=== PATIENT | female | born 1950 | race Caucasian/White ===

== ENCOUNTER 2025-02-17 06:56 | Inpatient (IN) ==
[2025-02-10 14:44] LABS: Basophils # (Auto) 0.02 K/mcL (0.00-0.30); Basophils % (Auto) 0.4 % (0.0-2.0); Eosinophils # (Auto) 0.06 K/mcL (0.00-0.70); Eosinophils % (Auto) 1.3 % (0.0-7.0); Hematocrit 35.4 % (34.1-44.9); Hemoglobin 11.3 g/dL (11.2-15.7); Lymphocytes # (Auto) 1.37 K/mcL (1.50-4.80); Lymphocytes % (Auto) 28.9 % (15.5-49.0); Mean Corpuscular HGB Conc 31.9 g/dL (31.0-36.0); Monocytes # (Auto) 0.41 K/mcL (0.10-0.90); Monocytes % (Auto) 8.6 % (1.0-12.0); Neutrophils % (Auto) 60.8 % (38.0-78.0); Platelet Count 203 K/mcL (140-440); RBC 3.55 M/mcL (3.59-5.38); WBC 4.7 K/mcL (4.5-11.0)
[2025-02-10 14:52] LABS: INR 1.0 (0.9-1.1); Prothrombin Time 14.1 sec (11.9-14.5)
[2025-02-10 14:54] LABS: Bilirubin,Urine Negative (Negative); Color,Urine Yellow; Glucose,Urine (UA) Negative (Negative); Ketones,Urine Negative (Negative); Leukocyte Esterase,Urine Negative /uL (Negative); PH,Urine 5.5 (5.0-9.0); Protein,Urine Negative (Negative); Specific Gravity,Urine <= 1.005 (1.000-1.035); Urobilinogen,Urine Normal
[2025-02-10 15:02] LABS: ALT/SGPT 13 U/L (<40); AST/SGOT 20 U/L (<32); Albumin 4.3 gm/dL (3.2-5.2); Albumin/Globulin Ratio 1.5 (1.0-2.3); Alkaline Phosphatase 61 U/L (39-117); Anion Gap 11.0 (8.0-16.0); Bilirubin,Total 0.2 mg/dL (0.1-1.0); Blood Urea Nitrogen 18 mg/dL (8-23); Calcium 9.9 mg/dL (8.6-10.4); Carbon Dioxide 23 mmol/L (22-30); Chloride 103 mmol/L (96-108); Globulin 2.8 gm/dL (2.2-3.7); Glucose 100 mg/dL (70-105); Potassium 4.2 mmol/L (3.3-5.1); Sodium 137 mmol/L (133-145)
[2025-02-10 19:00] LABS: Estimated Average Glucose(eAG) 114 mg/dL; Hemoglobin A1C 5.6 % Hgb (4.0-6.0)
[2025-02-17] MEDS ORDERED: GLYCOPYRROLATE 0.2 MG/ML VIAL IV ONE (07:14)
[2025-02-17] MEDS ORDERED: TRANEXAMIC ACID 1,000 MG/10 ML VIAL ONE (07:14)
[2025-02-17] MEDS ORDERED: DEXAMETHASONE 10 MG/ML VIAL ONE (07:14)
[2025-02-17] MEDS ORDERED: FAMOTIDINE/PF 20 MG/2 ML VIAL IV ONE (07:14)
[2025-02-17] MEDS ORDERED: ONDANSETRON 4 MG/2 ML VIAL ONE (07:14)
[2025-02-17] MEDS ORDERED: ROPIVACAINE HCL/PF 30 ML VIAL IJ ONE (07:15)
[2025-02-17] MEDS ORDERED: LIDOCAINE 2% PF 5 ML VIAL ONE (07:16)
[2025-02-17] MEDS ORDERED: PROPOFOL 200 MG/20 ML VIAL IV ONE (07:17)
[2025-02-17] MEDS ORDERED: MAGNESIUM SULFATE 2 GM/50 ML BAG IV ONE (07:19)
[2025-02-17] MEDS: CELECOXIB 200 MG CAPSULE PO SCH (07:30)
[2025-02-17] MEDS: oxyCODONE 10 MG TAB.ER.12H PO SCH (07:30)
[2025-02-17] MEDS: ACETAMINOPHEN 500 MG TABLET PO SCH (07:30)
[2025-02-17] MEDS: PREGABALIN 75 MG CAPSULE PO SCH (07:31)
[2025-02-17] MEDS: SCOPOLAMINE 1 PATCH PATCH TOPICAL ONE (08:10)
[2025-02-17] MEDS: ceFAZolin 2 GM in DEXTROSE 5% IN WATER 50 ML IV SCH (08:12)
[2025-02-17] MEDS ORDERED: PHENYLephrine 1 MG/10 ML SYRINGE (ANEST) ONE (08:26)
[2025-02-17] MEDS ORDERED: METHOCARBAMOL 1,000 MG/10 ML VIAL IV PRN (09:16)
[2025-02-17] MEDS ORDERED: IPRATROPIUM/ALBUTEROL 3 ML AMPUL.NEB NEB PRN (09:16)
[2025-02-17] MEDS ORDERED: KETOROLAC 15 MG/ML VIAL IV PRN (09:23)
[2025-02-17] MEDS ORDERED: ACETAMINOPHEN 325 MG TABLET PO PRN (09:23)
[2025-02-17] MEDS ORDERED: MAGNESIUM HYDROXIDE 30 ML ORAL.SUSP PO PRN (09:23)
[2025-02-17] MEDS ORDERED: BENZOCAINE/MENTHOL 1 LOZENGE PO PRN (09:23)
[2025-02-17] MEDS ORDERED: ONDANSETRON 4 MG/2 ML VIAL IV PRN (09:23)
[2025-02-17] MEDS: 0.9 % SODIUM CHLORIDE 9 ML, KETOROLAC 30 MG, ROPIVACAINE HCL/PF 49.5 ML, EPINEPHrine 0.... IJ SCH (09:25)
[2025-02-17] MEDS ORDERED: METHOCARBAMOL 500 MG TABLET PO PRN (09:26)
[2025-02-17] MEDS ORDERED: MELOXICAM 7.5 MG TABLET PO PRN (09:26)
[2025-02-17] MEDS ORDERED: HYDROcodone/APAP (PP) 7.5/325MG TABLET (#4) PO PRN (09:26)
[2025-02-17] MEDS: TRANEXAMIC ACID 1,000 MG/10 ML VIAL IV SCH (09:58)
[2025-02-17] MEDS: ONDANSETRON 4 MG/2 ML VIAL IV PRN (10:15)
[2025-02-17] MEDS: MEPERIDINE 25 MG/ML VIAL IV ONE (10:19)
[2025-02-17] MEDS: 0.9 % SODIUM CHLORIDE 1,000 ML IV SCH (10:39)
[2025-02-17] MEDS: 0.9 % SODIUM CHLORIDE 10 ML SYRINGE IV SCH (12:57)
[2025-02-17] MEDS: HYDROcodone/APAP 10/325MG TABLET PO PRN (15:03)
[2025-02-17] MEDS: ASPIRIN 81 MG TAB.CHEW CHEWED SCH (20:49)
[2025-02-17] MEDS: MELATONIN 3 MG TABLET PO SCH (20:49)
[2025-02-17] MEDS: DOCUSATE SODIUM 100 MG CAPSULE PO SCH (20:50)
[2025-02-17] MEDS: SIMVASTATIN 20 MG TABLET PO SCH (20:50)
[2025-02-17] MEDS: PRAMIPEXOLE 0.25 MG TABLET PO SCH (20:50)
[2025-02-17] MEDS: GABAPENTIN 300 MG CAPSULE PO SCH (20:52)
[2025-02-17] MEDS: LISINOPRIL 10 MG TABLET PO SCH (20:52)
[2025-02-17] MEDS ORDERED: TEMAZEPAM 15 MG CAPSULE PO PRN (21:00)
[2025-02-18 07:11] VITALS: TEMP 97.6
[2025-02-18] MEDS: MAGNESIUM OXIDE 400 MG TABLET PO SCH (08:30)
[2025-02-18] MEDS: VITAMIN D3 25 MCG TABLET PO SCH (08:30)
[2025-02-18] MEDS: ASCORBIC ACID 500 MG TABLET PO SCH (08:30)
[2025-02-18] MEDS: SERTRALINE 100 MG TABLET PO SCH (08:31)
[2025-02-18] MEDS: PANTOPRAZOLE 40 MG TABLET PO SCH (08:31)
[2025-02-18] MEDS: LEVOTHYROXINE 75 MCG TABLET PO SCH (08:31)
[2025-02-18] MEDS ORDERED: CRANBERRY FRUIT 400 MG PO SCH (09:00)
[2025-02-18 11:26] VITALS: O2SAT 97
== END 2025-02-18 11:15 | disposition home or self-care (01) | DRG 468 ==
LOC: MEDSUR 06:56
PROVIDERS: ADMIT Orthopaedic Surgery; ATTEND Orthopaedic Surgery